=== PATIENT | male | born 1990 | race Two or more races ===

== ENCOUNTER 2022-06-22 10:57 | Emergency (ER) | payer MEDICAID, OTHER ==
[~2022-06-22] VITALS: Ht 170.2 cm; Wt 93.2 kg
[2022-06-22] MEDS ORDERED: ASPirin 325 MG TAB PO ONE (11:00)
[2022-06-22 11:39] LABS: Basophils # (auto) 0 10 ^3/uL (0-0.2); Basophils % (auto) 0.5 % (0.0-2.0); Eosinophils # (auto) 0.1 10 ^3/uL (0-0.8); Eosinophils % (auto) 0.9 % (0.0-7.0); Hematocrit 48.9 % (41.0-53.0); Hemoglobin 16.4 g/dL (13.5-17.5); Lymphocytes # (auto) 2.8 10 ^3/uL (0.4-5.4); Lymphocytes % (auto) 39.8 % (10.0-50.0); Mean Corpuscular Hemoglobin 29.9 pg (28.0-32.0); Mean Corpuscular Hgb Conc. 33.5 g/dL (32.0-36.0); Mean Corpuscular Volume 89.2 fL (80.0-100.0); Monocytes # (auto) 0.5 10 ^3/uL (0-1.3); Monocytes % (auto) 6.9 % (0.0-12.0); Neutrophils # (auto) 3.7 10 ^3/uL (1.6-8.6); Neutrophils % (auto) 51.9 % (37.0-80.0); Nucleated Red Blood Cells % 0.1 %; Red Blood Cells 5.48 10^6/uL (4.5-5.90); Red Cell Distribution Width 12.8 % (11.8-14.3)
[2022-06-22 11:47] LABS: Calcium 9.3 mg/dL (8.5-10.1); Potassium 4.3 mmol/L (3.5-5.1)
[2022-06-22 11:52] LABS: Albumin 4.4 g/dL (3.4-5.0); BUN/Creatinine Ratio 9.8; Bilirubin, Total 0.5 mg/dL (0.2-1.0); Total Protein 8.4 g/dL (6.4-8.2)
[2022-06-22 12:17] LABS: Urine Bacteria NONE SEEN /hpf (None Seen); Urine Blood Negative /uL (Negative); Urine Specific Gravity 1.027 (1.001-1.035); Urine WBC 2 /hpf (0 - 3)
[2022-06-22 12:18] LABS: Alcohol, Urine < 3.0 mg/dL (0-10); Amphetamine Screen, Urine NEGATIVE (NEGATIVE); Barbiturate Scree,Urine NEGATIVE (NEGATIVE); Benzodiazephine Screen, Urine NEGATIVE (NEGATIVE); Cannabinoid Screen, Urine NEGATIVE (NEGATIVE); Cocaine Screen, Urine NEGATIVE (NEGATIVE); Opiate Scree,Urine NEGATIVE (NEGATIVE); Phencyclidine Screen, Urine NEGATIVE (NEGATIVE)
[2022-06-22] MEDS ORDERED: NITR-87 PO (13:26)
[2022-06-22 15:02] VITALS: BP 145/107
== END 2022-06-22 15:09 | disposition home or self-care (01) ==
LOC: ER 10:57
DX: R07.89 Other chest pain (principal); N39.0 Urinary tract infection, site not specified
CPT/HCPCS: 36415; 80053; 80307; 81001; 84484; 85025; 93005

== ENCOUNTER 2022-12-15 07:39 | Inpatient (IN) | payer OTHER, MEDICAID ==
[~2022-12-15] VITALS: Ht 170.2 cm; Wt 106.2 kg
[~2022-12-15 07:39] MED LIST: NITR-87 PO
[2022-12-15] MEDS ORDERED: MORPHINE SULFATE 4 MG/ML SYR/VIAL IV ONE (08:00)
[2022-12-15] MEDS ORDERED: SODIUM CHLORIDE 0.9% 500 ML IVB ONE (08:00)
[2022-12-15] MEDS ORDERED: MAALOX PLUS or MAALOX 30 ML PO ONE (08:00)
[2022-12-15] MEDS ORDERED: ONDANSETRON ODT 4 MG TAB PO ONE (08:00)
[2022-12-15] MEDS ORDERED: ONDANSETRON HCL 4 MG/2 ML VIAL IV ONE (08:00)
[2022-12-15 08:18] LABS: Basophils # (auto) 0 10 ^3/uL (0-0.2); Basophils % (auto) 0.6 % (0.0-2.0); Eosinophils # (auto) 0 10 ^3/uL (0-0.8); Eosinophils % (auto) 0.6 % (0.0-7.0); Hematocrit 46.4 % (41.0-53.0); Hemoglobin 16.2 g/dL (13.5-17.5); Lymphocytes # (auto) 1.9 10 ^3/uL (0.4-5.4); Mean Corpuscular Hemoglobin 31.1 pg (28.0-32.0); Mean Corpuscular Hgb Conc. 34.9 g/dL (32.0-36.0); Mean Corpuscular Volume 89.3 fL (80.0-100.0); Monocytes # (auto) 0.6 10 ^3/uL (0-1.3); Monocytes % (auto) 8.2 % (0.0-12.0); Neutrophils # (auto) 4.2 10 ^3/uL (1.6-8.6); Neutrophils % (auto) 62.6 % (37.0-80.0); Nucleated Red Blood Cells % 0.2 %; Red Cell Distribution Width 13.5 % (11.8-14.3); White Blood Cell 6.7 10^3/uL (4.4-10.8)
[2022-12-15 08:35] LABS: Albumin 4.2 g/dL (3.4-5.0); BUN/Creatinine Ratio 18.3; Bilirubin, Total 0.6 mg/dL (0.2-1.0); Calcium 9.3 mg/dL (8.5-10.1); Potassium 4.4 mmol/L (3.5-5.1)
[2022-12-15 08:37] LABS: INR 1.08 (0.9-1.15)
[2022-12-15] MEDS ORDERED: IOHEXOL 300 MG/ML 100ML BOTTLE IJ ONE (08:48)
[2022-12-15 09:22] LABS: Alcohol, Urine < 3.0 mg/dL (0-10); Amphetamine Screen, Urine NEGATIVE (NEGATIVE); Barbiturate Scree,Urine NEGATIVE (NEGATIVE); Benzodiazephine Screen, Urine NEGATIVE (NEGATIVE); Cannabinoid Screen, Urine NEGATIVE (NEGATIVE); Cocaine Screen, Urine NEGATIVE (NEGATIVE); Opiate Scree,Urine NEGATIVE (NEGATIVE); Phencyclidine Screen, Urine NEGATIVE (NEGATIVE)
[2022-12-15 09:26] LABS: Urine Bacteria NONE SEEN /hpf (None Seen); Urine Blood Negative /uL (Negative); Urine Mucus FEW (None Seen); Urine WBC 1 /hpf (0 - 3)
[2022-12-15] MEDS ORDERED: BUPIVACAINE IMPLANT 3x100mg IL ONE (10:30)
[2022-12-15] MEDS ORDERED: LIDOCAINE W/ EPINEPHRINE 1% 20ML VIAL ONE (10:44)
[2022-12-15] MEDS ORDERED: ceFAZolin 1GM/50ML 100 ML IV ONE (10:44)
[2022-12-15] MEDS ORDERED: BUPIVACAINE 0.25% INJ 50ML VIAL ONE (10:44)
[2022-12-15] MEDS ORDERED: fentaNYL CITRATE 100 MCG/2 ML VL ONE (11:25)
[2022-12-15] MEDS ORDERED: HYDROmorphone HCL 2 MG/ML VL/or syr ONE (11:25)
[2022-12-15] MEDS ORDERED: PROPOFOL 10 MG/ML 20 ML IV ONE (11:26)
[2022-12-15] MEDS ORDERED: DexAMETHasone SOD PHOS 10MG/1ML VIAL INJ ONE (11:26)
[2022-12-15] MEDS ORDERED: LIDOCAINE 2% (LOCAL ANESTH.) PF 5ml SDV ONE (11:26)
[2022-12-15] MEDS ORDERED: ONDANSETRON HCL 4 MG/2 ML VIAL ONE (11:26)
[2022-12-15] MEDS ORDERED: KETOROLAC TROMETH 30 MG/ML 1ML VIAL ONE (11:26)
[2022-12-15] MEDS ORDERED: MIDAZOLAM HCL 2MG/2ML 2ml VIAL (1mg/ml) ONE (11:26)
[2022-12-15] MEDS ORDERED: GLYCOPYRROLATE 0.2 MG/ML 1ML VIAL ONE (11:26)
[2022-12-15] MEDS ORDERED: HYDROmorphone HCL 2 MG/ML VL/or syr IV PRN (12:15)
[2022-12-15] MEDS ORDERED: ONDANSETRON HCL 4 MG/2 ML VIAL IV PRN ×2 (12:15→14:00)
[2022-12-15] MEDS ORDERED: ALBUTEROL SULF 2.5 MG/0.5ML(0.5%) NEB SOLN NEB PRN (12:15)
[2022-12-15] MEDS ORDERED: PANTOPRAZOLE 40 MG/10 ML VIAL INJ IV ONE (14:00)
[2022-12-15] MEDS ORDERED: ACETAMINOPHEN 325 MG TAB PO PRN (14:00)
[2022-12-15 14:46] VITALS: BP_SYST 130; BP_SYST 134; BP_SYST 148; BP_DIAS 82; BP_DIAS 85; BP_DIAS 92
[2022-12-15 16:46] VITALS: BP 148/85
[2022-12-15] MEDS: SODIUM CHLORIDE 0.9% 1,000 ML IV SCH (17:58)
[2022-12-15 20:00] VITALS: BP 131/74
[2022-12-15] MEDS: HYDROcodone-ACET 5/325MG TAB PO PRN (21:11)
[2022-12-15] MEDS: ceFAZolin 1GM/50ML 50 ML IV SCH (21:13)
[2022-12-15 22:00] VITALS: BP 131/74
[2022-12-16] VITALS (7 sets, daily range): BP systolic 122–147; BP diastolic 61–97
[2022-12-16 06:19] LABS: Basophils # (auto) 0 10 ^3/uL (0-0.2); Basophils % (auto) 0.1 % (0.0-2.0); Eosinophils # (auto) 0 10 ^3/uL (0-0.8); Eosinophils % (auto) 0.1 % (0.0-7.0); Hematocrit 42.7 % (41.0-53.0); Hemoglobin 14.8 g/dL (13.5-17.5); Lymphocytes # (auto) 2.1 10 ^3/uL (0.4-5.4); Lymphocytes % (auto) 15.6 % (10.0-50.0); Mean Corpuscular Hemoglobin 31.2 pg (28.0-32.0); Mean Corpuscular Hgb Conc. 34.7 g/dL (32.0-36.0); Mean Corpuscular Volume 89.9 fL (80.0-100.0); Monocytes # (auto) 0.8 10 ^3/uL (0-1.3); Monocytes % (auto) 6.1 % (0.0-12.0); Neutrophils # (auto) 10.5 10 ^3/uL (1.6-8.6); Neutrophils % (auto) 78.1 % (37.0-80.0); Nucleated Red Blood Cells % 0.1 %; Red Blood Cells 4.75 10^6/uL (4.5-5.90); Red Cell Distribution Width 13.6 % (11.8-14.3); White Blood Cell 13.4 10^3/uL (4.4-10.8)
[2022-12-16] MEDS: SODIUM CHLORIDE 0.9% 1,000 ML IV SCH (06:27)
[2022-12-16] MEDS: ceFAZolin 1GM/50ML 50 ML IV SCH ×3 (06:27→21:42)
[2022-12-16 06:34] LABS: Calcium 9.1 mg/dL (8.5-10.1); Potassium 4.5 mmol/L (3.5-5.1)
[2022-12-16 06:41] LABS: Albumin 3.8 g/dL (3.4-5.0); Bilirubin, Total 0.8 mg/dL (0.2-1.0); Total Protein 7.4 g/dL (6.4-8.2)
[2022-12-16] MEDS: HYDROcodone-ACET 5/325MG TAB PO PRN ×2 (08:49→21:42)
[2022-12-16] MEDS: PANTOPRAZOLE 40 MG/10 ML VIAL INJ IV SCH (08:50)
[2022-12-16] MEDS ORDERED: MORPHINE SULFATE INJ 2 MG/ml SYRG IV PRN (12:00)
[2022-12-17] MEDS: HYDROcodone-ACET 5/325MG TAB PO PRN (02:08)
[2022-12-17] MEDS: SODIUM CHLORIDE 0.9% 1,000 ML IV SCH ×2 (02:09→16:00)
[2022-12-17 05:00] VITALS: BP 130/86
[2022-12-17] MEDS: ceFAZolin 1GM/50ML 50 ML IV SCH ×2 (05:36→14:09)
[2022-12-17 06:40] LABS: Basophils # (auto) 0 10 ^3/uL (0-0.2); Basophils % (auto) 0.5 % (0.0-2.0); Eosinophils # (auto) 0.1 10 ^3/uL (0-0.8); Eosinophils % (auto) 0.9 % (0.0-7.0); Hematocrit 41.1 % (41.0-53.0); Hemoglobin 14.1 g/dL (13.5-17.5); Lymphocytes # (auto) 3.9 10 ^3/uL (0.4-5.4); Lymphocytes % (auto) 44.9 % (10.0-50.0); Mean Corpuscular Hemoglobin 31.1 pg (28.0-32.0); Mean Corpuscular Hgb Conc. 34.3 g/dL (32.0-36.0); Mean Corpuscular Volume 90.6 fL (80.0-100.0); Monocytes # (auto) 0.6 10 ^3/uL (0-1.3); Monocytes % (auto) 7.2 % (0.0-12.0); Neutrophils % (auto) 46.5 % (37.0-80.0); Nucleated Red Blood Cells % 0.2 %; Red Blood Cells 4.54 10^6/uL (4.5-5.90); Red Cell Distribution Width 13.9 % (11.8-14.3); White Blood Cell 8.7 10^3/uL (4.4-10.8)
[2022-12-17 07:26] LABS: Calcium 8.4 mg/dL (8.5-10.1); Potassium 5.2 mmol/L (3.5-5.1)
[2022-12-17] MEDS: PANTOPRAZOLE 40 MG/10 ML VIAL INJ IV SCH (10:56)
[2022-12-17] MEDS ORDERED: DOCU-94 PO (13:19)
[2022-12-17] MEDS ORDERED: CEPH-510 PO (13:19)
[2022-12-17] MEDS ORDERED: HYDR1TAB97 PO (13:19)
[2022-12-17 13:54] VITALS: BP 143/102
== END 2022-12-17 17:36 | disposition home or self-care (01) | DRG 352 ==
LOC: ER 07:39 → OVERFLOW 14:28 → WEST WING 15:03
PROVIDERS: ADMIT Nurse Practitioner Family; ATTEND Internal Medicine
PROC: 0YQ60ZZ Repair Left Inguinal Region, Open Approach (ICD-10-PCS; principal; 2022-12-15 10:55)
DX: K40.30 Unilateral inguinal hernia, with obstruction, without gangrene, not specified as recurrent (principal); E66.01 Morbid (severe) obesity due to excess calories; Z68.36 Body mass index [BMI] 36.0-36.9, adult; F17.290 Nicotine dependence, other tobacco product, uncomplicated
CPT/HCPCS: 36415; 74177; 80048; 80053; 80307; 81001; 83690; 84132; 85025; 85610; 85730; 86850; 86900; 86901; C1781; C9113; G0378; J0690; J1100; J1885; J2001; J2250; J2405; J2704; J3490

== ENCOUNTER 2023-06-21 16:38 | Emergency (ER) | payer MEDICAID, OTHER ==
[~2023-06-21] VITALS: Ht 170.2 cm; Wt 97.1 kg
[~2023-06-21 16:38] MED LIST changes: +CEPH-510 PO; +DOCU-94 PO; +HYDR1TAB97 PO
[2023-06-21 18:12] LABS: Alanine Aminotransferase 50 U/L (7-40); Albumin 5.3 g/dL (3.2-4.8); Alkaline Phosphatase 79 U/L (46-116); Anion Gap 5 (5-15); Aspartate Aminotransferase 24 U/L (13-40); BUN/Creatinine Ratio 12.4 (10.0-20.0); Bilirubin, Total 0.4 mg/dL (0.2-1.0); Blood Urea Nitrogen 15 mg/dL (9-23); Calcium 10.1 mg/dL (8.7-10.4); Carbon Dioxide 30 mmol/L (20-30); Chloride 104 mmol/L (98-107); Glucose 95 mg/dL (74-106); Potassium 4.3 mmol/L (3.5-5.1); Sodium 139 mmol/L (136-145); Total Protein 7.6 g/dL (5.7-8.2)
[2023-06-21 18:44] LABS: Basophils # (auto) 0 10 ^3/uL (0-0.2); Basophils % (auto) 0.4 % (0.0-2.0); Eosinophils # (auto) 0.1 10 ^3/uL (0-0.8); Eosinophils % (auto) 1.5 % (0.0-7.0); Hematocrit 46.1 % (41.0-53.0); Hemoglobin 15.7 g/dL (13.5-17.5); Lymphocytes # (auto) 3.8 10 ^3/uL (0.4-5.4); Lymphocytes % (auto) 53.4 % (10.0-50.0); Mean Corpuscular Hemoglobin 30.4 pg (28.0-32.0); Mean Corpuscular Hgb Conc. 34.1 g/dL (32.0-36.0); Mean Corpuscular Volume 89.1 fL (80.0-100.0); Monocytes # (auto) 0.4 10 ^3/uL (0-1.3); Monocytes % (auto) 5.5 % (0.0-12.0); Neutrophils # (auto) 2.8 10 ^3/uL (1.6-8.6); Neutrophils % (auto) 39.2 % (37.0-80.0); Nucleated Red Blood Cells % 0.2 %; Red Blood Cells 5.17 10^6/uL (4.5-5.90); Red Cell Distribution Width 13.6 % (11.8-14.3); White Blood Cell 7.1 10^3/uL (4.4-10.8)
[2023-06-21 18:46] LABS: Urine Bacteria FEW /hpf (None Seen); Urine Blood Negative /uL (Negative); Urine Clarity Clear (Clear); Urine Color Yellow (Yellow); Urine Mucus FEW (None Seen); Urine Protein, UAD 1+ (Negative); Urine Specific Gravity 1.037 (1.001-1.035); Urine Sperm PRESENT /hpf (None Seen); Urine WBC 2 /hpf (0 - 3); Urine pH 5.5 (5.0-8.0)
[2023-06-22 03:20] VITALS: BP 141/96; PULSE 87; RESP 20; O2SAT 97
== END 2023-06-22 03:28 | disposition home or self-care (01) ==
LOC: ER 16:38
DX: K40.91 Unilateral inguinal hernia, without obstruction or gangrene, recurrent (principal); Z79.899 Other long term (current) drug therapy
CPT/HCPCS: 36415; 74176; 80053; 81001; 83605; 85025

== ENCOUNTER 2023-08-10 07:58 | Day surgery (SDC) | payer OTHER ==
[2023-08-05 10:59] LABS: Urine WBC None Seen /hpf (0 - 3)
[2023-08-05 11:09] LABS: Basophils # (auto) 0 10 ^3/uL (0-0.2); Basophils % (auto) 0.5 % (0.0-2.0); Eosinophils # (auto) 0.1 10 ^3/uL (0-0.8); Eosinophils % (auto) 1.5 % (0.0-7.0); Hemoglobin 16.5 g/dL (13.5-17.5); Lymphocytes # (auto) 2.8 10 ^3/uL (0.4-5.4); Lymphocytes % (auto) 45.1 % (10.0-50.0); Mean Corpuscular Hemoglobin 30.5 pg (28.0-32.0); Mean Corpuscular Hgb Conc. 34.3 g/dL (32.0-36.0); Monocytes # (auto) 0.5 10 ^3/uL (0-1.3); Monocytes % (auto) 8.1 % (0.0-12.0); Neutrophils # (auto) 2.8 10 ^3/uL (1.6-8.6); Neutrophils % (auto) 44.8 % (37.0-80.0); Nucleated Red Blood Cells % 0.1 %; Red Blood Cells 5.39 10^6/uL (4.5-5.90); Red Cell Distribution Width 13.6 % (11.8-14.3); White Blood Cell 6.2 10^3/uL (4.4-10.8)
[2023-08-05 11:16] LABS: Urine Bacteria NONE SEEN /hpf (None Seen); Urine Blood Negative /uL (Negative); Urine Clarity Clear (Clear); Urine Color Yellow (Yellow); Urine Protein, UAD TRACE (Negative); Urine Specific Gravity 1.029 (1.001-1.035); Urine Urobilinogen Normal (Negative)
[2023-08-05 11:26] LABS: INR 1.1 (0.9-1.15); Partial Thromboplastin Time 30.7 SEC (24.5-34.5); Prothrombin Time 11.5 sec (9.3-11.8)
[2023-08-05 12:04] LABS: Alanine Aminotransferase 55 U/L (7-40); Albumin 4.9 g/dL (3.2-4.8); Alkaline Phosphatase 68 U/L (46-116); Anion Gap 4 (5-15); Aspartate Aminotransferase 28 U/L (13-40); BUN/Creatinine Ratio 11.7 (10.0-20.0); Bilirubin, Total 0.7 mg/dL (0.2-1.0); Blood Urea Nitrogen 13 mg/dL (9-23); Calcium 9.8 mg/dL (8.7-10.4); Carbon Dioxide 30 mmol/L (20-30); Chloride 105 mmol/L (98-107); Glucose 94 mg/dL (74-106); Potassium 4.7 mmol/L (3.5-5.1); Sodium 139 mmol/L (136-145); Total Protein 7.7 g/dL (5.7-8.2)
[~2023-08-10] VITALS: Ht 170.2 cm; Wt 97.5 kg
[2023-08-10] MEDS ORDERED: ceFAZolin 2 GM/D5W100ml 100 ML IV ONE (09:33)
[2023-08-10] MEDS ORDERED: MEPERIDINE HCL (50 MG/ML) 1 ML VIAL ONE (09:43)
[2023-08-10] MEDS ORDERED: fentaNYL CITRATE 100 MCG/2 ML VL ONE (09:43)
[2023-08-10] MEDS ORDERED: MIDAZOLAM HCL 2MG/2ML 2ml VIAL (1mg/ml) ONE (09:45)
[2023-08-10] MEDS ORDERED: BUPIVACAINE 0.5% P/F INJ 10 ML VIAL ONE (09:50)
[2023-08-10] MEDS ORDERED: LIDOCAINE W/ EPINEPHRINE 1% 20ML VIAL ONE (09:50)
[2023-08-10] MEDS ORDERED: LIDOCAINE 2% JELLY 11ml (GLYDO) ONE (09:54)
[2023-08-10] MEDS ORDERED: SUCCINYLCHOLINE CHLORIDE 20 MG/ML 10ML VIAL IV ONE (09:55)
[2023-08-10] MEDS ORDERED: PROPOFOL 10 MG/ML 20 ML IV ONE (10:26)
[2023-08-10] MEDS ORDERED: ROCURONIUM 10MG/ML 10ML VIAL IV ONE (10:26)
[2023-08-10] MEDS ORDERED: DexAMETHasone SOD PHOS 10MG/1ML VIAL INJ ONE (10:26)
[2023-08-10] MEDS ORDERED: ONDANSETRON HCL 4 MG/2 ML VIAL ONE (10:26)
[2023-08-10] MEDS ORDERED: KETOROLAC TROMETH 30 MG/ML 1ML VIAL IV ONE (10:30)
[2023-08-10] MEDS ORDERED: ePHEDrine SULFATE 50 MG/ML AMP IV PRN (10:30)
[2023-08-10] MEDS ORDERED: LABETALOL HCL 5 MG/ML 4ML SYRINGE IV PRN (10:30)
[2023-08-10] MEDS ORDERED: ONDANSETRON HCL 4 MG/2 ML VIAL IV PRN (10:30)
[2023-08-10] MEDS ORDERED: MORPHINE SULFATE 4 MG/ML SYR/VIAL IV PRN (10:30)
[2023-08-10] MEDS ORDERED: MIDAZOLAM HCL 2MG/2ML 2ml VIAL (1mg/ml) IV PRN (10:30)
[2023-08-10] MEDS ORDERED: hydrALAZINE HCL 20 MG/ML VL IV PRN (10:30)
[2023-08-10] MEDS ORDERED: SUGAMMADEX 200mg/2ml Vial (100MG/ML) IV ONE (11:25)
[2023-08-10 11:55] VITALS: TEMP 97.4; O2SAT 97
[2023-08-10] MEDS: HYDROmorphone HCL 2 MG/ML VL/or syr IV PRN ×4 (12:01→12:42)
[2023-08-10 13:00] VITALS: BP 122/85; PULSE 75; RESP 15; O2SAT 96
== END 2023-08-10 13:05 | disposition home or self-care (01) ==
LOC: SUR 07:58
PROVIDERS: ATTEND Surgery
DX: K40.91 Unilateral inguinal hernia, without obstruction or gangrene, recurrent (principal); E66.01 Morbid (severe) obesity due to excess calories; K66.0 Peritoneal adhesions (postprocedural) (postinfection)
CPT/HCPCS: 36415; 49520; 80053; 81001; 85025; 85610; 85730; 86850; 86900; 86901; C1781; J0330; J1100; J1170; J1885; J2175; J2250; J2270; J2405; J2704; J3010; J3490

== ENCOUNTER 2023-10-27 13:07 | Emergency (ER) | payer OTHER ==
[~2023-10-27] VITALS: Ht 170.2 cm; Wt 99.1 kg
[2023-10-27 14:22] VITALS: BP 139/96; PULSE 97; RESP 16; TEMP 97.7; O2SAT 97
[2023-10-27] MEDS ORDERED: CEPH500C PO (14:24)
== END 2023-10-27 14:31 | disposition home or self-care (01) ==
LOC: ER 13:07
DX: K40.90 Unilateral inguinal hernia, without obstruction or gangrene, not specified as recurrent (principal); Z79.899 Other long term (current) drug therapy

== ENCOUNTER 2025-04-05 05:28 | Emergency (ER) | payer OTHER ==
[~2025-04-05] VITALS: Ht 170.2 cm; Wt 95.0 kg
[~2025-04-05 05:28] MED LIST changes: -CEPH-510 PO; +CEPH500C PO; -DOCU-94 PO; -HYDR1TAB97 PO; -NITR-87 PO
[2025-04-05] MEDS ORDERED: IBUP-1456 PO (06:23)
[2025-04-05] MEDS ORDERED: CLIN1CAP70 PO (06:23)
[2025-04-05 06:25] VITALS: BP 135/92; PULSE 82; RESP 16; TEMP 98.3; O2SAT 95
[2025-04-05] MEDS: KETOROLAC TROMETH 60MG/2ML VIAL IM ONE (06:29)
[2025-04-05] MEDS: cefTRIAXone SOD 1,000 MG VL IM ONE (06:29)
--- NOTE | 2025-04-05 06:32 | ED.PDOC ---
History of Present Illness HPI Comments A 34 YEAR-OLD MALE PRESENTS TO THE ED WITH A CHIEF COMPLAINT OF RIGHT SIDED TOOTH PAIN OF X3 DAYS AGO. PATIENT REPORTS THAT HE WENT TO URGENT CARE LAST WEEK THROAT PAIN AND WAS GIVEN PENICILLIN FOR SUSPECTED STREP THROAT. PATIENT NOTES NO ALLEVIATING FACTORS AND HAS SINCE BEEN EXPERIENCING ASSOCIATED SYMPTOMS OF UPPER RIGHT SIDED TOOTH PAIN, SWOLLEN TONSILS, AND HEADACHE. PATIENT ADDITIONALLY STATES THAT YESTERDAY MORNING HE BLEW HIS NOSE AND NOTICED A "TISSUE LIKE AND BLOODY" BODY FALL OUT OF HIS NOSE. PATIENT HAS NO FURTHER SYMPTOMS AT THIS TIME AND OTHERWISE DENIES FURTHER ASSOCIATED SYMPTOMS DIZZINESS, COUGHING BLOOD, FEVER, CHILLS, OR N/V. PATIENT IS ALERT, ORIENTED X 4, AND HAS STEADY GAIT. Chief Complaint: Face pain Time Seen by MD: 06:25 Primary Care Provider: REBECA Carvajal Notes: Nurses Notes, Medications, Allergies Allergies: Coded Allergies: NO KNOWN ALLERGIES (Unverified , 06/22/22) Home Meds Active Scripts Ibuprofen (Ibuprofen) 800 Mg Tab, 1 TAB PO TID, #30 TAB Prov:CATHLEEN JAMES 04/05/25 Clindamycin Hcl (Clindamycin Hcl) 300 Mg Cap, 300 MG PO QID for 7 Days, #28 CAP Prov:CATHLEEN JAMES 04/05/25 Cephalexin Monohydrate (Cephalexin) 500 Mg Cap, 1 CAP PO QID, #28 CAP Prov:CATHLEEN JAMES 10/27/23 Information Source: Patient Mode of Arrival: Ambulatory Severity: Moderate Timing: Days Duration: Since onset, Days Prehospital treatment: None Location: UPPER RIGHT SIDE OF JAW, HEAD, TONSILS Associated signs and symptoms RIGHT SIDED TOOTH PAIN, HEADACHE, SWOLLEN TONSILS Past Medical History PAST MEDICAL HISTORY: Denies Surgical History: Hernia Repair Family History Family History: Reviewed,noncontributory to illness Social History Smoker: Non-Smoker, Other Alcohol: Occasionally Drugs: Denies Drug Use Lives In: Home Constitutional: denies: chills, diaphoresis, fatigue, fever, malaise, sweats, weakness, others EENTM: reports: throat pain, throat swelling, others (UPPER RIGHT SIDE TOOTH PAIN AND SWOLLEN TONSILS ); denies: blurred vision, double vision, ear bleeding, ear discharge, ear drainage, ear pain, ear ringing, eye pain, eye redness, h earing loss, mouth pain, mouth swelling, nasal discharge, nose bleeding, nose congestion, nose pain, photophobia, tearing, voice changes Respiratory: denies: cough, hemoptysis, orthopnea, SOB at rest, shortness of breath, SOB with excertion, stridor, wheezing, others Cardiovascular: denies: chest pain, dizzy spells, diaphoresis, Dyspnea on exertion, edema, irregular heart beat, left arm pain, lightheadedness, palpitations, PND, syncope, others Gastrointestinal: denies: abdomen distended, abdominal pain, blood streaked bowels, constipated, diarrhea, dysphagia, difficulty swallowing, hematemesis, melena, nausea, poor appetite, poor fluid intake, rectal bleeding, rectal pain, vomiting, others Genitourinary: denies: burning, dysuria, flank pain, frequency, hematuria, incontinence, penile discharge, penile sore, pain, testicle pain, testicle swelling, urgency, others Neurological: reports: headache; denies: dizziness, fainting, left sided numbness, left sided weakness, numbness, paresthesia, pre-existing deficit, right sided numbness, right sided weakness, seizure, speech problems, tingling, tremors, weakness, others Musculoskeletal: denies: back pain, gout, joint pain, joint swelling, muscle pain, muscle stiffness, neck pain, others Integumetry: denies: bruises, change in color, change in hair/nails, dryness, laceration, lesions, lumps, rash, wounds, others Allergic/Immunocompromised: denies: Difficulty Healing, Frequent Infections, Hives, Itching, others Hematologic/Lymphatic: denies: anemia, blood clots, easy bleeding, easy bruising, swollen glands, others Endocrine: denies: excessive hunger, excessive sweating, excessive thirst, excessive urination, flushing, intolerance to cold, intolerance to heat, unexplained weight gain, unexplained weight loss, others Psychiatric: denies: anxiety, bipolar disorder, depression, hopeless, panic disorder, schizophrenia, sleepless, suicidal, others All Other Systems: Reviewed and Negative Physical Exam General Appearance: No Apparent Distress, Normal HEENT: PERRL/EOMI, Pharyngeal Erythema (TONSILLAR SWELLING, NO EXUDATES. ), TMs Normal, Other (ERYTHEMA AND SWELLING ON RIGHT UPPER GUM AROUND TOOTH, DENTAL INFECTION, NO FACIAL SWELLING AND ERYTHEMA. ) Neck: Full Range of Motion, Non-Tender, Normal, Normal Inspection Respiratory: Chest Non-Tender, Lungs Clear, No Accessory Muscle Use, No Respiratory Distress, Normal Breath Sounds Cardiovascular: No Edema, No JVD, No Murmur, No Gallop, Normal Peripheral Pulses, Regular Rate/Rhythm Breast Exam: Deferred Gastrointestinal: No Organomegaly, Non Tender, No Pulsatile Mass, Normal Bowel Sounds, Soft Genitalia: Deferred Pelvic: Deferred Rectal: Deferred Extremities: No calf tenderness, Normal capillary refill, Normal inspection, Normal range of motion, Non-tender, No pedal edema Musculoskeletal : Apperance: Normal Neurologic: Alert, gift wrapper II-XII nml as Tested, No Motor Deficits, Normal Affect, Normal Mood, No Sensory Deficits Cerebellar Function: Normal Reflexes: Normal Skin: Dry, Normal Color, Warm Peripheral Pulses: 2+ carotid (R), 2+ carotid (L) Lymphatic: No Adenopathy Was a procedure done? Was a procedure done?: No Differential Dx Considerations may include: ACUTE ERYTHEMATOUS TONSILLITIS, DENTAL INFECTION, SINUSES CONGESTION. X-Ray, Labs, Meds, VS Vital Signs Date Time Temp Pulse Resp B/P (MAP) Pulse Ox O2 Delivery O2 Flow Rate FiO2 04/05/25 05:53 99.3 86 18 145/92 (109) 95 99.3 Current Medications Medications (Trade) Dose Ordered Sig/Elsa Route Start Time Stop Time Status Last Admin Ceftriaxone Sodium (Rocephin) 1,000 mg ONCE ONCE IM 04/05/25 06:30 04/05/25 06:31 DC 04/05/25 06:29 Ketorolac Tromethamine (Toradol Injection) 60 mg ONCE ONCE IM 04/05/25 06:30 04/05/25 06:31 DC 04/05/25 06:29 X-Ray, Labs, Meds, VS Comment EXTERNAL MEDICAL RECORDS: NONE INDEPENDENT HISTORIANS: NONE SOCIAL DETERMINANTS OF HEALTH: NONE LABS ORDERED: NONE REVIEWED AND INTERPRETED RESULTS: NONE IMAGING ORDERED: NONE TREATMENTS ORDERED: ROCEPHIN 1GM IM AND TORADOL 60MG IM PATIENT'S CASE AND RESULTS HAVE BEEN DISCUSSED WITH THE ED ATTENDING PHYSICIAN, SYBIL AND THEY AGREE WITH MY PLAN OF CARE.RX: IBUPROFEN AND CLINDAMYCIN I HAVE DISCUSSED IMAGING AND LAB RESULTS WITH THE PATIENT AND HAVE INSTRUCTED THE PATIENT TO FOLLOW UP WITH THEIR PCP IN 1-2 DAYS. THE PATIENT FULLY UNDERSTANDS THEIR RESULTS AND ARE AWARE THEY NEED TO FOLLOW UP WITH THEIR PCP FOR FURTHER EVALUATION IF THEIR SYMPTOMS PERSIST. Time of 1ST Reevaluation: 07:30 Reevaluation 1ST: Improved Patient Education/Counseling: Diagnosis, Treatment, Need For Follow Up Family Education/Counseling: Diagnosis, Treatment, Need For Follow Up Medical Screening: No EMC Exist At This Time SEPSIS Sepsis Screen Date sepsis recognized/suspect: Apr 05, 2025 Time Sepsis recognized/suspect: 539 Recent Procedure: No On Antibiotic Therapy: No Respiratory Rate >20: No Heart Rate >90: No Temp<36 C (96.8 F) or >38.3 C: No SBP <90 or MAP <65 mmHG: No New Acute Mental Status Change: No Is the patient on CPAP, BIPAP,: No Vital Signs Date Time Temp Pulse Resp B/P (MAP) Pulse Ox O2 Delivery O2 Flow Rate FiO2 04/05/25 05:53 99.3 86 18 145/92 (109) 95 99.3 Medications Medications Dose Ordered Sig/Elsa Route Start Time Stop Time Status Last Admin Dose Admin Ceftriaxone Sodium 1,000 mg ONCE ONCE IM 04/05/25 06:30 04/05/25 06:31 DC 04/05/25 06:29 Ketorolac Tromethamine 60 mg ONCE ONCE IM 04/05/25 06:30 04/05/25 06:31 DC 04/05/25 06:29 Departure 1 Departure Time of Disposition: 07:40 Impression: Primary Impression: Acute erythematous tonsillitis Additional Impression: Dental infection Disposition: HOME / SELF CARE / HOMELESS Condition: Stable Additional Instructions: F/U PCP IN 2 DAYS RECHECK. IF CONDITION BECOME WORSE, RETURN TO ED [facility]. e-Prescriptions Ibuprofen (Ibuprofen) 800 Mg Tab 1 TAB PO TID, #30 TAB Prov: CATHLEEN JAMES 04/05/25 Clindamycin Hcl (Clindamycin Hcl) 300 Mg Cap 300 MG PO QID for 7 Days, #28 CAP Prov: CATHLEEN JAMES 04/05/25 Discharged With: Self Critical Care Note Critical Care Time?: No Stability Stability form required: No Heart Score Heart Score: Heart Score Response (Comments) Value History N/A 0 EKG N/A 0 Age N/A 0 Risk Factors N/A 0 Troponin N/A 0 Total 0 I personally scribed for CATHLEEN JAMES ([email or web address]) on 04/05/25 at 06:32. Electronically submitted by Jemima Rouse ([facility]). CATHLEEN JAMES Apr 05, 2025 06:32
== END 2025-04-05 06:54 | disposition home or self-care (01) ==
LOC: ER 05:28
DX: K04.7 Periapical abscess without sinus (principal); J03.90 Acute tonsillitis, unspecified; Z98.890 Other specified postprocedural states; Z79.1 Long term (current) use of non-steroidal anti-inflammatories (NSAID); Z79.899 Other long term (current) drug therapy
CPT/HCPCS: 96372; 99284; J0696; J1885